=== PATIENT | female | born 1950 | race Caucasian/White ===

== ENCOUNTER → 2017-02-22 | Outpatient (CLI) | payer MEDICARE, OTHER ==
[2015-08-23 11:00] VITALS: BP 134/73
[~2017-02-22] MED LIST: ALPR0.5T6 PO; CEFP200T PO; CITA40TA12 PO; ESOM20CA PO; GABA-586 PO; GABA600T2 PO; MAGN400T22 PO; METR500T PO; POTASSIUM CHLO10 MEQ PO; PRED2.5T PO; PRED20TA PO
--- NOTE | 2017-02-22 13:20 | KCIC ---
EXAM: Pelvis, single view. HISTORY: Pain. COMPARISON: None. FINDINGS: A frontal view of the pelvis is obtained. There is no fracture, dislocation or subluxation. There is minimal marginal femoral head spurring. There is an oval density overlying the left sacrum, likely a bone island. There is degenerative change at the lumbosacral junction. There are vascular calcifications. IMPRESSION: No acute osseous finding. Electronically signed by: Sabrina Cotton MD (02/22/2017 1:17 PM) [place] [id number]
--- NOTE | 2017-02-22 13:21 | KCIC ---
EXAM: Lumbar spine, 6 views. HISTORY: Pain. COMPARISON: None. FINDINGS: Frontal, lateral, bilateral oblique and coned sacral views of the lumbar spine are obtained. There is grade 2 anterolisthesis of L5 on S1 with associated bilateral pars interarticular is defects. The listhesis measures approximately 11 mm. The vertebral bodies are normal in height. There is disc space narrowing at L5-S1. There is minimal lumbar levoscoliosis. There is a suspected bone island within the left sacrum. IMPRESSION: 1. Grade 2 anterolisthesis of L5 on S1 with associated pars defects and disc space narrowing. 2. Minimal lumbar levoscoliosis. Electronically signed by: Sabrina Cotton MD (02/22/2017 1:18 PM) [place] [id number]
--- NOTE | 2017-02-22 13:54 | KCIC ---
Three view bilateral hand radiographs 02/22/2017 CLINICAL HISTORY: Bilateral hand pain. PA, lateral and oblique digital radiographs of both hands were obtained. There is diffuse osteopenia of the visualized bony structures. Moderate to severe degenerative changes are seen throughout the interphalangeal joints of both hands. These consist of varying degrees of joint compartment narrowing, subchondral sclerosis and associated osteophyte formation. Mild degenerative changes are seen throughout the MCP joints of both hands. Moderate to severe degenerative changes are seen involving the carpal metacarpal joints of both thumbs. Severe degenerative changes are seen involving the radial aspect of the mid carpal joints of both wrists. No subluxation or significant erosive changes are noted. No fracture or dislocation is seen. Calcification of the distal ulnar and radial arteries seen bilaterally. IMPRESSION: Degenerative changes are seen involving both hands and wrists as outlined above. No acute osseous abnormality is seen. Electronically signed by: Rick Tripp MD (02/22/2017 1:51 PM) [id number]
== END | disposition home or self-care (01) ==
LOC: KCIC 12:41
PROVIDERS: ATTEND Internal Medicine Rheumatology
DX: M19.042 Primary osteoarthritis, left hand (principal); M19.041 Primary osteoarthritis, right hand; M85.80 Other specified disorders of bone density and structure, unspecified site
CPT/HCPCS: 72110; 72170; 73130

== ENCOUNTER → 2017-03-02 | Outpatient (CLI) | payer MEDICARE, OTHER ==
[2015-08-23 11:00] VITALS: BP 134/73
[~2017-03-02] MED LIST changes: +BUDE10.2 IH; +CETI10TA16 PO; +CHOL10002 PO; +CYAN10005 PO; +FERR325T72 PO; +GABA300C8 PO; +GUAI600T47 PO; +HYDR200T5 PO; +LEVO500T59 PO; +MONT10TA9 PO; +POTA10TA12 PO; +PRED-220 PO; +PRED1TAB3 PO; +VENTOLIN HFA18 GM INH
--- NOTE | 2017-03-02 11:16 | KCIC ---
EXAM: Chest, 2 views. HISTORY: Dyspnea. Cough. COMPARISON: None. FINDINGS: Frontal and lateral views of the chest are obtained. There is an irregular 1.6 cm right perihilar nodular opacity. There is right middle and lower lobe increased interstitial opacity. There is elevation of the left hemidiaphragm with left basilar pleural-parenchymal scarring. There is a hiatal hernia. The heart is normal in size. There is hyperinflation due to emphysema. IMPRESSION: 1. Irregular right perihilar nodular opacity. This may be due to nodular infiltrate; however, neoplasm is not excluded. Short-term radiographic or CT follow-up is indicated. 2. Right middle and lower lobe interstitial opacity possibly due to interstitial infiltrate. 3. Elevation of the left hemidiaphragm with suspected left basilar scarring and a hiatal hernia. 4. Emphysema. Electronically signed by: Sabrina Cotton MD (03/02/2017 11:13 AM) [facility]
== END | disposition home or self-care (01) ==
LOC: KCIC 10:38
PROVIDERS: ATTEND Internal Medicine
DX: J43.9 Emphysema, unspecified (principal); K44.9 Diaphragmatic hernia without obstruction or gangrene; R05 Cough
CPT/HCPCS: 71020

== ENCOUNTER → 2017-03-18 | Outpatient (CLI) | payer MEDICARE, OTHER ==
[2017-03-07 11:00] VITALS: BP 111/55
--- NOTE | 2017-03-18 16:43 | RAD ---
2 views of the Chest 03/18/2017 2:00 AM Indication: PNEUMONIA, PLS COMPARE WITH PREVIOUS EXAMS Comparison: 2 views of the chest March 02, 2017 CT of the chest without contrast March 04, 2017 Findings: There is a mild infiltrate in the left upper lung, new since prior exam. Infiltrate in the right basilar lung is somewhat improved in the interim. Stable findings of diaphragmatic hernia noted. No pneumothorax. Heart size is stable. Bony thorax is unchanged. Impression: New mild infiltrate in the left midlung and improving infiltrate in the right basilar lung.
== END | disposition home or self-care (01) ==
LOC: RAD 15:28
PROVIDERS: ATTEND Internal Medicine
DX: J18.9 Pneumonia, unspecified organism (principal); K44.9 Diaphragmatic hernia without obstruction or gangrene; R91.8 Other nonspecific abnormal finding of lung field
CPT/HCPCS: 71020

== ENCOUNTER → 2017-09-23 | Outpatient (CLI) | payer MEDICARE, OTHER | END | disposition home or self-care (01) | LOC: KCIC 10:29 | DX: J98.11 Atelectasis (principal); K44.9 Diaphragmatic hernia without obstruction or gangrene | CPT/HCPCS: 71046 ==

== ENCOUNTER 2019-02-18 16:17 | Emergency (ER) | payer MEDICARE, OTHER ==
[~2019-02-18] VITALS: Ht 170.2 cm; Wt 63.5 kg
[~2019-02-18 16:17] MED LIST changes: +CYAN-25 PO; -CYAN10005 PO; -GABA-586 PO; +GABA300C18 PO; -GABA300C8 PO; -GABA600T2 PO; +GABA600T7 PO; +MONT10TA49 PO; -MONT10TA9 PO; -POTASSIUM CHLO10 MEQ PO
--- NOTE | 2019-02-18 16:43 | PHYS DOC ---
Past Medical History Past Medical History: Other Additional Past Medical Histor: GENA GARCIA, Past Surgical History: Hysterectomy Additional Past Surgical Histo: PYLOPLASTY,VAGOTOMY Alcohol Use: None Drug Use: None Adult General Chief Complaint Chief Complaint: SHORTNESS OF BREATH HPI HPI Patient is a 68 year old female who presents to the ED today complaining of cough and shortness of breath as well as nasal congestion for 2 weeks. Patient states she has been trying [id number] remedies with no relief. She states for the last 3 days her symptoms have worsened. She states she takes prednisone 70 mg every day for Crohn's disease. Review of Systems Review of Systems Constitutional: Denies fever or chills [] Eyes: Denies change in visual acuity, redness, or eye pain [] HENT: Reports nasal congestion, denies sore throat [] Respiratory: Reports cough and shortness of breath [] Cardiovascular: No additional information not addressed in HPI [] GI: Denies abdominal pain, nausea, vomiting, bloody stools or diarrhea [] : Denies dysuria or hematuria [] Musculoskeletal: Denies back pain or joint pain [] Integument: Denies rash or skin lesions [] Neurologic: Denies headache, focal weakness or sensory changes [] All other systems were reviewed and found to be within normal limits, except as documented in this note. Current Medications Current Medications Current Medications Medications (Trade) Dose Ordered Sig/[place] Start Time Stop Time Status Last Admin Dose Admin Albuterol/ Ipratropium (Duoneb) 3 ml 1X ONCE 02/18/19 16:45 02/18/19 16:46 DC 02/18/19 16:40 3 ML Dexamethasone Sodium Phosphate (Decadron) 10 mg 1X ONCE 02/18/19 16:45 02/18/19 16:46 DC 02/18/19 16:59 10 MG Allergies Allergies Allergies Coded Allergies Type Severity Reaction Last Updated Verified Penicillins Allergy Severe rash 08/21/15 Yes Sulfa (Sulfonamide Antibiotics) Allergy Severe rash 08/21/15 Yes clarithromycin Allergy Severe 03/05/17 Yes Physical Exam Physical Exam Constitutional: Well developed, well nourished, no acute distress, non-toxic appearance. [] HENT: Normocephalic, atraumatic, bilateral external ears normal, oropharynx moist, no oral exudates, nose normal. [] Eyes: PERRLA, EOMI, conjunctiva normal, no discharge. [] Neck: Normal range of motion, no tenderness, supple, no stridor. [] Cardiovascular: Tachycardic, no murmur [] Lungs & Thorax: Bilateral breath sounds clear to auscultation [] Abdomen: Bowel sounds normal, soft, no tenderness, no masses, no pulsatile masses. [] Skin: Warm, dry, no erythema, no rash. [] Back: No tenderness, no CVA tenderness. [] Extremities: No tenderness, no cyanosis, no clubbing, ROM intact, no edema. [] Neurologic: Alert and oriented X 3, normal motor function, normal sensory function, no focal deficits noted. [] Psychologic: Affect normal, judgement normal, mood normal. [] Current Patient Data Vital Signs Vital Signs Date Time Temp Pulse Resp B/P (MAP) Pulse Ox O2 Delivery O2 Flow Rate FiO2 02/18/19 17:23 92 22 140/62 (88) 99 Room Air 02/18/19 16:31 97.9 97.9 Lab Values Laboratory Tests Test 02/18/19 17:01 02/18/19 17:10 White Blood Count 11.9 x10^3/uL (4.0-11.0) H Red Blood Count 3.87 x10^6/uL (3.50-5.40) Hemoglobin 10.7 g/dL (12.0-15.5) L Hematocrit 32.6 % (36.0-47.0) L Mean Corpuscular Volume 84 fL (79-100) Mean Corpuscular Hemoglobin 28 pg (25-35) Mean Corpuscular Hemoglobin Concent 33 g/dL (31-37) Red Cell Distribution Width 19.7 % (11.5-14.5) H Platelet Count 278 x10^3/uL (140-400) Neutrophils (%) (Auto) 86 % (31-73) H Lymphocytes (%) (Auto) 5 % (24-48) L Monocytes (%) (Auto) 7 % (0-9) Eosinophils (%) (Auto) 2 % (0-3) Basophils (%) (Auto) 1 % (0-3) Neutrophils # (Auto) 10.2 x10^3/uL (1.8-7.7) H Lymphocytes # (Auto) 0.6 x10^3/uL (1.0-4.8) L Monocytes # (Auto) 0.9 x10^3/uL (0.0-1.1) Eosinophils # (Auto) 0.2 x10^3/uL (0.0-0.7) Basophils # (Auto) 0.1 x10^3/uL (0.0-0.2) Segmented Neutrophils % 84 % (35-66) H Band Neutrophils % 3 % (0-9) Lymphocytes % 5 % (24-48) L Monocytes % 6 % (0-10) Eosinophils % 2 % (0-5) Platelet Estimate Adequate (ADEQUATE) Poikilocytosis Slight Anisocytosis Slight Sodium Level 146 mmol/L (136-145) H Potassium Level 4.3 mmol/L (3.5-5.1) Chloride Level 111 mmol/L (98-107) H Carbon Dioxide Level 22 mmol/L (21-32) Anion Gap 13 (6-14) Blood Urea Nitrogen 20 mg/dL (7-20) Creatinine 0.8 mg/dL (0.6-1.0) Estimated GFR (Cockcroft-Gault) 71.3 BUN/Creatinine Ratio 25 (6-20) H Glucose Level 106 mg/dL (70-99) H Calcium Level 8.9 mg/dL (8.5-10.1) Total Bilirubin 0.1 mg/dL (0.2-1.0) L Aspartate Amino Transferase (AST) 18 U/L (15-37) Alanine Aminotransferase (ALT) 19 U/L (14-59) Alkaline Phosphatase 100 U/L (46-116) Creatine Kinase 122 U/L (26-192) Creatine Kinase MB (Mass) 1.9 ng/mL (0.0-3.6) Creatine Kinase MB Relative Index 1.6 % (0-4) Troponin I Quantitative < 0.017 ng/mL (0.000-0.055) YN-Jji-Y-Type Natriuretic Peptide 192 pg/mL (0-124) H Total Protein 6.0 g/dL (6.4-8.2) L Albumin 3.0 g/dL (3.4-5.0) L Albumin/Globulin Ratio 1.0 (1.0-1.7) Lactic Acid Level 2.7 mmol/L (0.4-2.0) H Laboratory Tests 02/18/19 17:01 Laboratory Tests 02/18/19 17:01 EKG EKG [address] Conde sinus rhythm HR 99 no STEMI[] Radiology/Procedures Radiology/Procedures [] Course & Med Decision Making Course & Med Decision Making Pertinent Labs and Imaging studies reviewed. (See chart for details) This is a 68-year-old female patient who presents to the ED today with cough, SOA and nasal congestion for 2 weeks, patient reports she is already on prednisone for Crohn's disease. She is afebrile arrival to the ED. Chest x-ray is negative for any acute findings. CBC with a WBC of 11.1, CMP would not acute findings. Lactate 2.7. 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 DC on will doxycycline and albuterol inhaler. Dragon Disclaimer Dragon Disclaimer This electronic medical record was generated, in whole or in part, using a voice recognition dictation system. Departure Departure Impression: Primary Impression: Acute bronchitis Additional Impression: Elevated lactic acid level Disposition: HOME, SELF-CARE Condition: STABLE Referrals: NO PCP (PCP) follow up with your doctor in 1 week Patient Instructions: Acute Bronchitis Additional Instructions: You were evaluated in the emergency room, we put you on antibiotics, ensure you complete them. Push fluids. Continue taking your prednisone. Use the breathing treatments as needed. Follow-up with your own doctor in the next 7 days. Scripts Albuterol Sulfate (PROAIR HFA INHALER) 8.5 Gm Hfa.aer.ad 2 PUFF IH PRN Q4-6HRS PRN for wheezing for 21 Days, #1 INHALER 0 Refills Prov: FLOYD RAMIREZ APRN 02/18/19 Doxycycline Monohydrate (DOXYCYCLINE MONOHYDRATE) 100 Mg Capsule 1 CAP PO BID, #14 CAP Prov: FLOYD RAMIREZ CHILD [employer]VOCATE 02/18/19 Problem Qualifiers Primary Impression: Acute bronchitis Bronchitis organism: unspecified organism Qualified Codes: J20.9 - Acute bronchitis, unspecified FLOYD RAMIREZ CHILD ADVOCATE Feb 18, 2019 16:43
[2019-02-18] MEDS ORDERED: IPRATRPIUM/ALBUTEROL 0.5/2.5MG 3 ML NEBU. NEB ONE (16:45)
[2019-02-18] MEDS ORDERED: DEXAMETHASONE SOD PHOS 20 MG/5 ML VIAL. IV ONE (16:45)
[2019-02-18 17:11] LABS: BASO # 0.1 x10^3/uL (0.0-0.2); BASO % 1 % (0-3); EOS # 0.2 x10^3/uL (0.0-0.7); EOS % 2 % (0-3); HEMATOCRIT 32.6 % (36.0-47.0); HEMOGLOBIN 10.7 g/dL (12.0-15.5); LYMPH # 0.6 x10^3/uL (1.0-4.8); LYMPH % 5 % (24-48); MEAN CORPUSCULAR HEMOGLOBIN 28 pg (25-35); MEAN CORPUSCULAR HGB CONC 33 g/dL (31-37); MEAN CORPUSCULAR VOLUME 84 fL (79-100); MONO # 0.9 x10^3/uL (0.0-1.1); MONO % 7 % (0-9); NEUT # 10.2 x10^3/uL (1.8-7.7); NEUT % 86 % (31-73); PLATELET COUNT 278 x10^3/uL (140-400); RED BLOOD COUNT 3.87 x10^6/uL (3.50-5.40); RED CELL DISTRIBUTION WIDTH 19.7 % (11.5-14.5); WHITE BLOOD COUNT 11.9 x10^3/uL (4.0-11.0)
[2019-02-18 17:20] LABS: CALCIUM 8.9 mg/dL (8.5-10.1); CREATININE 0.8 mg/dL (0.6-1.0); GFR 71.3; POTASSIUM 4.3 mmol/L (3.5-5.1)
[2019-02-18 17:23] VITALS: BP 140/62
[2019-02-18 17:26] LABS: TOTAL BILIRUBIN 0.1 mg/dL (0.2-1.0)
[2019-02-18 17:53] LABS: % BANDS 3 % (0-9); % EOS 2 % (0-5); % LYMPHS 5 % (24-48); % MONOS 6 % (0-10); % SEGS 84 % (35-66); ANISOCYTOSIS SLIGHT; PLT ESTIMATE ADEQUATE (ADEQUATE); POIKILOCYTOSIS SLIGHT
[2019-02-18] MEDS ORDERED: DOXY100C14 PO (18:20)
[2019-02-18] MEDS ORDERED: ALBU2.5V8 IH (18:20)
--- NOTE | 2019-02-18 23:44 | RAD ---
Chest PA and lateral: Reason for examination: Cough. Comparison is made to previous study dated 09/23/2017. The heart size is normal. There continues be a large hiatal hernia present. Mediastinum is otherwise unchanged. Lung delgadillo show mild increased markings in the markings in the mid left lung field and some mild infiltrates are suspected. Right lung field is clear. No acute bony abnormalities are seen. IMPRESSION: Continued presence of what appears to be a large hiatal hernia without change. Mild infiltrates in the mid left lung field. The heart size is normal. Mediastinum is unremarkable. Lung delgadillo are clear. No acute bony abnormalities are seen. Impression: No acute cardiopulmonary disease. Electronically signed by: Marlen Celaya MD (02/18/2019 11:41 PM) [id number]
--- NOTE | 2019-02-19 06:50 | EKG ---
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
== END 2019-02-18 18:38 | disposition home or self-care (01) ==
LOC: ER 16:17
DX: J20.9 Acute bronchitis, unspecified (principal); R74.0 Nonspecific elevation of levels of transaminase and lactic acid dehydrogenase [LDH]; Z90.710 Acquired absence of both cervix and uterus; Z88.0 Allergy status to penicillin; Z88.2 Allergy status to sulfonamides; Z88.1 Allergy status to other antibiotic agents
CPT/HCPCS: 36415; 71046; 80053; 82553; 83605; 83880; 84484; 85007; 85025; 87040; 93005; 94640; 96374; 99285; J1100; J7620

== ENCOUNTER → 2020-04-29 | Outpatient (CLI) | payer MEDICARE, OTHER ==
[~2020-04-29] MED LIST changes: +ALBU2.5V8 IH; +DOXY100C14 PO
--- NOTE | 2020-04-29 16:57 | KCIC ---
Cervical spine radiograph 04/29/2020 11:39 AM INDICATION: Cervicalgia for several months. Left shoulder pain. COMPARISON: None available. TECHNIQUE: Lateral, AP, bilateral obliques, swimmer's view and odontoid views of the cervical spine a re provided. FINDINGS: The cervical spine is visualized from the craniocervical junction through the cervicothoracic junctio n. There is reversal the normal cervical lordosis centered at C5-C6. No acute fracture is visualized. There is moderate to advanced disc height loss at C4-C5, C5-C6 and C6-C7. There is posterior margina l osteophytosis at C5-C6. Mild to moderate facet arthropathy is noted. Moderate uncovertebral joint d isease. Is mild left osseous foraminal stenosis at C5-C6. There is mild to moderate osseous neurofora anna stenosis in the right at C5-C6 and C6-C7. There is no prevertebral soft tissue swelling. The la teral masses of C1 articulate appropriately with the C2 vertebral body. IMPRESSION: No acute fracture of the cervical spine. Moderate cervical spondylosis. Electronically signed by: Cammie Eckert MD (04/29/2020 4:54 PM) [facility]
== END ==
LOC: KCIC 11:34
PROVIDERS: ATTEND Internal Medicine Rheumatology
DX: M47.812 Spondylosis without myelopathy or radiculopathy, cervical region (principal); M48.02 Spinal stenosis, cervical region; M25.78 Osteophyte, vertebrae; M12.88 Other specific arthropathies, not elsewhere classified, other specified site; M48.8X2 Other specified spondylopathies, cervical region
CPT/HCPCS: 72050

== ENCOUNTER → 2020-08-14 | Outpatient (CLI) | payer MEDICARE, OTHER ==
--- NOTE | 2020-08-14 16:58 | KCIC ---
EXAM: 3 Views Left Shoulder DATE: 08/14/2020 3:17 PM INDICATION: Reason: Left shoulder pain for several months. / Spl. Instructions: / History: COMPARISON: No Prior FINDINGS: There is no evidence for acute fracture or dislocation. AC joint is congruent. AC joint degenerative changes are seen. Small glenoid rim osteophytes. Humeral head is not high riding. Left lung base [place] possibly atelectasis/scarring. IMPRESSION: 1. No acute fracture or dislocation. 2. Mild AC joint and minimal glenohumeral joint degenerative changes are seen. Electronically signed by: Ricki Crisostomo MD (08/14/2020 4:56 PM) [id number]
== END ==
LOC: KCIC 14:40
PROVIDERS: ATTEND Internal Medicine
DX: M19.012 Primary osteoarthritis, left shoulder (principal); M25.712 Osteophyte, left shoulder
CPT/HCPCS: 73030